=== PATIENT | female | born 1985 | race African-American/Black ===

== ENCOUNTER 2018-03-19 19:17 | Emergency (ER) | payer SELFPAY ==
[~2018-03-19] VITALS: Ht 162.6 cm; Wt 88.0 kg
[~2018-03-19 19:17] MED LIST: CHLO15MO2 PO; CIPR500T94 PO; HYDR-971 PO; IBUP800T19 PO; PENI500T PO; PHEN-318 PO
[2018-03-19] MEDS ORDERED: PENI500T PO (19:46)
[2018-03-19] MEDS ORDERED: HYDR-971 PO (19:46)
--- NOTE | 2018-03-19 19:46 | PHYS DOC ---
Past History Past Medical History: No Pertinent History Past Surgical History: Tubal ligation, Other Alcohol Use: None Drug Use: None Adult General Chief Complaint Chief Complaint: DENTAL PROBLEM HPI HPI Patient is a 33 year old female who presents with complaint of dental pain. Patient states that she was eating when her right upper lateral incisor suddenly fractured. Patient has had history of chronic dental pain and multiple dental caries. Patient states that she visited the dental clinic today but states that she was unable to afford definitive care for the tooth. She came to the emergency department today for pain control. Patient denies any fevers or other complaints. Patient rates pain as 9 out of 10. Patient has not taken medications for her symptoms. Review of Systems Review of Systems Constitutional: Denies fever or chills [] Eyes: Denies change in visual acuity, redness, or eye pain [] HENT: Dental pain, denies sore throat [] Respiratory: Denies cough or shortness of breath [] Cardiovascular: Denies chest pain or edema[] GI: Denies abdominal pain, nausea, vomiting, bloody stools or diarrhea [] : Denies dysuria or hematuria [] Musculoskeletal: Denies back pain or joint pain [] Integument: Denies rash or skin lesions [] Neurologic: Denies headache, focal weakness or sensory changes [] All other systems were reviewed and found to be within normal limits, except as documented in this note. Allergies Allergies Allergies Coded Allergies Type Severity Reaction Last Updated Verified No Known Drug Allergies 05/26/16 No Physical Exam Physical Exam Constitutional: Alert, afebrile, appears in [id number] discomfort. [] HENT: Normocephalic, atraumatic, bilateral external ears normal, oropharynx moist, fracture of tooth #7, no gingival swelling or fluctuance, no oral exudates, nose normal. [] Eyes: PERRLA, EOMI, conjunctiva normal, no discharge. [] Neck: Normal range of motion, no tenderness, supple, no stridor. [] Cardiovascular:Heart rate regular rhythm, no murmur [] Lungs & Thorax: Bilateral breath sounds clear to auscultation [] Abdomen: Bowel sounds normal, soft, no tenderness, no masses, no pulsatile masses. [] Skin: Warm, dry, no erythema, no rash. [] Back: No tenderness, no CVA tenderness. [] Extremities: No tenderness, no cyanosis, no clubbing, ROM intact, no edema. [] Neurologic: Alert and oriented X 3, normal motor function, normal sensory function, no focal deficits noted. [] Current Patient Data Vital Signs Vital Signs Date Time Temp Pulse Resp B/P (MAP) Pulse Ox O2 Delivery O2 Flow Rate FiO2 03/19/18 19:17 97.8 80 18 97 Room Air Lab Results None performed EKG EKG Not performed[] Radiology/Procedures Radiology/Procedures Not performed[] Course & Med Decision Making Course & Med Decision Making Pertinent Labs and Imaging studies reviewed. (See chart for details) The patient was given [place] and penicillin in the emergency department for treatment. Advised follow-up with a dental clinic for definitive care of her dental fracture. Recommended return to emergency department for any worsening symptoms. Patient was understanding and agreement with treatment plan. Dragon Disclaimer Dragon Disclaimer This electronic medical record was generated, in whole or in part, using a voice recognition dictation system. Departure Departure: Impression: Primary Impression: Pain, dental Disposition: HOME, SELF-CARE Condition: STABLE Referrals: PCPRUBEN (PCP) Patient Instructions: Dental Pain Additional Instructions: You'll need follow-up with a dentist in the next 2 days for definitive care of your tooth. Return to emergency department for any worsening symptoms. Scripts Penicillin V Potassium (PENICILLIN V POTASSIUM) 500 Mg Tablet 1 TAB PO QID, #40 TAB Prov: TRISTIN KEN MD 03/19/18 Hydrocodone Bit/Acetaminophen (NORCO 5-325 TABLET) 1 Each Tablet 1-2 TAB PO Q4-6HRS PRN for PAIN, #20 TAB Prov: TRISTIN KEN MD 03/19/18 TRISTIN KEN MD Mar 19, 2018 19:46
[2018-03-19] MEDS ORDERED: PENICILLIN V K 250 MG TABLET. PO STA (19:49)
[2018-03-19 20:00] VITALS: BP 121/78
[2018-03-19] MEDS ORDERED: HYDROcodone/APAP 7.5/325MG 1 TAB TABLET PO ONE (20:00)
== END 2018-03-19 20:00 | disposition home or self-care (01) ==
LOC: ER 19:17
DX: K08.89 Other specified disorders of teeth and supporting structures (principal); S02.5XXA Fracture of tooth (traumatic), initial encounter for closed fracture; X58.XXXA Exposure to other specified factors, initial encounter; Y93.89 Activity, other specified; Y99.8 Other external cause status; Y92.89 Other specified places as the place of occurrence of the external cause
CPT/HCPCS: 99283

== ENCOUNTER 2018-03-22 12:02 | Emergency (ER) | payer SELFPAY ==
[~2018-03-22] VITALS: Ht 162.6 cm; Wt 83.9 kg
[2018-03-22] MEDS ORDERED: IBUP800T19 PO (12:28)
--- NOTE | 2018-03-22 12:28 | PHYS DOC ---
Past History Past Medical History: No Pertinent History Past Surgical History: Tubal ligation, Other Smoking: Cigarettes Alcohol Use: None Drug Use: None Adult General Chief Complaint Chief Complaint: Toothache HPI HPI 33-year-old female patient states she has broken tooth several days ago and was seen in this emergency room 4 days ago and treated with hydrocodone and antibiotic but her pain is not getting better and asking to pulling the tooth out or having a stronger pain medication. She denies fever and chills, nausea and vomiting, . Patient states she stopped smoking 4 days ago because of the pain. Review of Systems Review of Systems Constitutional: Denies fever or chills [] Eyes: Denies change in visual acuity, redness, or eye pain [] HENT: Denies nasal congestion or sore throat [] Respiratory: Denies cough or shortness of breath [] Cardiovascular: No additional information not addressed in HPI [] GI: Denies abdominal pain, nausea, vomiting, bloody stools or diarrhea [] : Denies dysuria or hematuria [] Musculoskeletal: Denies back pain or joint pain [] Integument: Denies rash or skin lesions [] Neurologic: Denies headache, focal weakness or sensory changes [] Endocrine: Denies polyuria or polydipsia [] All other systems were reviewed and found to be within normal limits, except as documented in this note. Allergies Allergies Allergies Coded Allergies Type Severity Reaction Last Updated Verified No Known Drug Allergies 05/26/16 No Physical Exam Physical Exam Constitutional: Well nourished, mild distress, non-toxic appearance. [] HENT: Normocephalic, atraumatic, right upper incisor ( tooth#7) feet large cavity without sign of abscess, bilateral external ears normal, oropharynx moist , no oral exudates, nose normal. [] Eyes: PERRLA, EOMI, conjunctiva normal, no discharge. [] Neck: Normal range of motion, no tenderness, supple, no stridor. [] Cardiovascular:Heart rate regular rhythm, no murmur [] Lungs & Thorax: Bilateral breath sounds clear to auscultation [] Neurologic: Alert and oriented X 3, normal motor function, normal sensory function, no focal deficits noted. [] Psychologic: Affect anxious, judgement normal, mood normal. [] EKG EKG [] Radiology/Procedures Radiology/Procedures [] Course & Med Decision Making Course & Med Decision Making Lotion of patient in ER showed 33-year-old female patient with history of smoking presented to ER for the second time because of the pain as improving the tooth. Patient informed that she is to follow-up with the dentist. Patient did not want dental block and had Toradol shot and instructed to follow-up with the dentist and continue home hydrocodone and penicillin. Dragon Disclaimer Dragon Disclaimer This electronic medical record was generated, in whole or in part, using a voice recognition dictation system. Departure Departure: Impression: Primary Impression: Dentalgia Additional Impressions: Dental caries Tobacco abuse Tobacco abuse counseling Disposition: HOME, SELF-CARE (At 1230) Condition: STABLE Referrals: PCP,NO (PCP) Patient Instructions: Dental Caries, Dental Pain, Smoking Cessation, Tips For Success, Tooth Fracture Additional Instructions: Follow-up with her dentist in 2 or 3 days Quit smoking Continue home antibiotic and pain medication Scripts Ibuprofen (IBUPROFEN) 800 Mg Tablet 1 TAB PO TID, #30 TAB Prov: NICOLA KHAN MD 03/22/18 Problem Qualifiers NICOLA KHAN MD Mar 22, 2018 12:28
[2018-03-22] MEDS ORDERED: KETOROLAC 60 MG/2 ML VIAL. IM ONE (12:45)
[2018-03-22 13:13] VITALS: BP 109/72
== END 2018-03-22 13:15 | disposition home or self-care (01) ==
LOC: ER 12:02
DX: K02.9 Dental caries, unspecified (principal); F17.210 Nicotine dependence, cigarettes, uncomplicated; Z71.6 Tobacco abuse counseling
CPT/HCPCS: 96372; 99283; J1885

== ENCOUNTER 2018-08-14 13:52 | Emergency (ER) | payer SELFPAY ==
[~2018-08-14] VITALS: Ht 162.6 cm; Wt 86.2 kg
[~2018-08-14 13:52] MED LIST changes: +HYDR-3165 PO; -HYDR-971 PO
[2018-08-14 13:59] VITALS: BP 124/79
[2018-08-14] MEDS ORDERED: IBUPROFEN 400 MG TABLET. PO ONE (14:30)
[2018-08-14] MEDS ORDERED: NAPR-683 PO (14:31)
--- NOTE | 2018-08-14 14:32 | PHYS DOC ---
Past History Past Medical History: No Pertinent History Past Surgical History: Tubal ligation, Other Smoking: Cigarettes Alcohol Use: None Drug Use: None Adult General Chief Complaint Chief Complaint: DENTAL PROBLEM HPI HPI Patient is a 33 year old smoking female who presents with complaining of dental pain. Patient states last night she had the procaine right upper teeth with complaining of severe pain in her tooth without fever and chills, dysphagia, nausea and vomiting. Patient has history of frequent emergency room visits for dental pain. Review of Systems Review of Systems Constitutional: Denies fever or chills [] Eyes: Denies change in visual acuity, redness, or eye pain [] HENT: Denies nasal congestion or sore throat [] Respiratory: Denies cough or shortness of breath [] Cardiovascular: No additional information not addressed in HPI [] GI: Denies abdominal pain, nausea, vomiting, bloody stools or diarrhea [] : Denies dysuria or hematuria [] Musculoskeletal: Denies back pain or joint pain [] Integument: Denies rash or skin lesions [] Neurologic: Denies headache, focal weakness or sensory changes [] Endocrine: Denies polyuria or polydipsia [] All other systems were reviewed and found to be within normal limits, except as documented in this note. Current Medications Current Medications Current Medications Medications (Trade) Dose Ordered Sig/Steffi Start Time Stop Time Status Last Admin Dose Admin Ibuprofen (Motrin) 800 mg 1X ONCE 08/14/18 14:30 08/14/18 14:31 Allergies Allergies Allergies Coded Allergies Type Severity Reaction Last Updated Verified acetaminophen Allergy Mild 03/22/18 Yes codeine Allergy Mild 03/22/18 Yes Physical Exam Physical Exam Constitutional: Well developed, well nourished, mild distress, non-toxic appearance. [] HENT: Normocephalic, atraumatic, bilateral external ears normal, oropharynx moist, no oral exudates, nose normal, tooth #7 fractured with mild tenderness without sign of abscess Eyes: PERRLA, EOMI, conjunctiva normal, no discharge. [] Neck: Normal range of motion, no tenderness, supple, no stridor. [] Cardiovascular:Heart rate regular rhythm, no murmur [] Lungs & Thorax: Bilateral breath sounds clear to auscultation [] Skin: Warm, dry, no erythema, no rash. [] Back: No tenderness, no CVA tenderness. [] Extremities: No tenderness, no cyanosis, no clubbing, ROM intact, no edema. [] Neurologic: Alert and oriented X 3, normal motor function, normal sensory function, no focal deficits noted. [] Psychologic: Affect anxious, judgement normal, mood normal. [] Current Patient Data Vital Signs Vital Signs Date Time Temp Pulse Resp B/P (MAP) Pulse Ox O2 Delivery O2 Flow Rate FiO2 08/14/18 13:59 98.1 75 18 100 Room Air EKG EKG [] Radiology/Procedures Radiology/Procedures [] Course & Med Decision Making Course & Med Decision Making Evaluation of patient in ER showed 33-year-old female patient with frequent emergency room visits for dental pain presented with fractured tooth. Patient did not have sign of infection and prescription for pain medication was given and instructed to quit smoking and follow up with her dentist. Dragon Disclaimer Dragon Disclaimer This electronic medical record was generated, in whole or in part, using a voice recognition dictation system. Departure Departure: Impression: Primary Impression: Fractured tooth Additional Impressions: Tobacco abuse Tobacco abuse counseling Disposition: HOME, SELF-CARE (at 1429) Condition: STABLE Referrals: PCP,NO (PCP) Patient Instructions: Smoking Cessation, Tips For Success, Tooth Fracture Additional Instructions: Follow-up with a dentist in 2-3 days Follow-up with your primary care physician in 3-5 days Return to ER if not getting better Quit smoking Use [id number] Orajel Scripts Naproxen (NAPROSYN) 500 Mg Tablet 500 MG PO BID for pain, #20 TAB Prov: NICOLA KHAN MD 08/14/18 Problem Qualifiers NICOLA KHAN MD Aug 14, 2018 14:32
== END 2018-08-14 14:35 | disposition home or self-care (01) ==
LOC: ER 13:52
DX: S02.5XXA Fracture of tooth (traumatic), initial encounter for closed fracture (principal); F17.210 Nicotine dependence, cigarettes, uncomplicated; Z88.6 Allergy status to analgesic agent; Z88.5 Allergy status to narcotic agent; Z71.6 Tobacco abuse counseling; X58.XXXA Exposure to other specified factors, initial encounter; Y93.89 Activity, other specified; Y92.89 Other specified places as the place of occurrence of the external cause; Y99.8 Other external cause status
CPT/HCPCS: 99282

== ENCOUNTER 2018-10-15 12:29 | Emergency (ER) | payer SELFPAY ==
[~2018-10-15] VITALS: Ht 162.6 cm; Wt 88.9 kg
[~2018-10-15 12:29] MED LIST changes: +NAPR-683 PO
[2018-10-15] MEDS ORDERED: HYDROcodone/APAP 5/325MG 1 TAB TABLET PO ONE (13:15)
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
[2018-10-15 13:57] VITALS: BP 128/73
[2018-10-15] MEDS ORDERED: HYDR-3165 PO (14:13)
[2018-10-15] MEDS ORDERED: NAPR-683 PO (14:13)
[2018-10-15] MEDS ORDERED: CYCL-331 PO (14:13)
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
== END 2018-10-15 14:15 | disposition home or self-care (01) ==
LOC: ER 12:29
DX: S83.92XA Sprain of unspecified site of left knee, initial encounter (principal); S43.402A Unspecified sprain of left shoulder joint, initial encounter; Z71.6 Tobacco abuse counseling; Z88.5 Allergy status to narcotic agent; Z88.6 Allergy status to analgesic agent; V47.5XXA Car driver injured in collision with fixed or stationary object in traffic accident, initial encounter; Y93.I9 Activity, other involving external motion; Y92.488 Other paved roadways as the place of occurrence of the external cause; Y99.8 Other external cause status
CPT/HCPCS: 73030; 73564; 99283

== ENCOUNTER 2020-01-30 20:43 | Emergency (ER) | payer SELFPAY ==
[~2020-01-30] VITALS: Ht 162.6 cm; Wt 85.4 kg
[~2020-01-30 20:43] MED LIST changes: +CYCL-331 PO
[2020-01-30 21:15] VITALS: BP 139/87
[2020-01-30 21:34] LABS: U PREG PATIENT NEGATIVE (NEG)
[2020-01-30 21:37] LABS: BARBITURATES NEG (NEG); BENZODIAZEPINES NEG (NEG); CANNABINOIDS NEG (NEG); COCAINE NEG (NEG); METHADONE NEG (NEG); OPIATES NEG (NEG); PHENCYCLIDINE NEG (NEG)
[2020-01-30 21:38] LABS: BILIRUBIN,URINE NEG (NEG); CLARITY,URINE CLOUDY; COLOR,URINE YELLOW; GLUCOSE,URINE NEG (NEG)
[2020-01-30] MEDS ORDERED: FLUCONAZOLE 100 MG TABLET. ONE (21:38)
[2020-01-30 21:39] LABS: BACTERIA,URINE FEW /HPF (0-FEW); NITRITE,URINE POS (NEG); SQUAMOUS EPITHELIAL CELL,UR FEW /LPF; UROBILINOGEN,URINE 0.2 mg/dL (0.2 mg/dL); WBC,URINE TNTC /HPF (0-4)
[2020-01-30] MEDS ORDERED: OXYC-325 PO (21:41)
[2020-01-30] MEDS ORDERED: METR70GE14 VG (21:41)
[2020-01-30] MEDS ORDERED: DOXY100T PO (21:41)
[2020-01-30] MEDS ORDERED: FLUC100T7 PO (21:41)
[2020-01-30 21:45] LABS: AMPHETAMINE/METHAMPHETAMINE NEG (NEG)
[2020-01-30] MEDS ORDERED: metroNIDAZOLE 500 MG TABLET PO ONE (22:00)
[2020-01-30] MEDS ORDERED: oxyCODONE/APAP 5/325 1 TAB TABLET PO ONE (22:00)
[2020-01-30] MEDS ORDERED: AZITHROMYCIN 250 MG TABLET. PO ONE (22:00)
[2020-01-30] MEDS ORDERED: ONDANSETRON ODT 4 MG TAB.RAPDIS PO ONE (22:00)
[2020-01-30] MEDS ORDERED: FLUCONAZOLE 100 MG TABLET. PO ONE (22:00)
[2020-01-30] MEDS ORDERED: cefTRIAXone IM 1 GM VIAL IM ONE (22:00)
--- NOTE | 2020-01-30 22:02 | PHYS DOC ---
Past History Past Medical History: STD Past Surgical History: Gastric Bypass, Tubal ligation, Other Additional Past Surgical Histo: UTERINE ABLATION Smoking: Cigarettes Alcohol Use: None Drug Use: None General Adult EDM: Chief Complaint: VAGINAL BLEEDING HPI: HPI: ".. I got a bad vaginal discharged.. I am so sore down there.. I ve gotten so raw down there... I am bleeding... I did have Trich.. with my last partner... I got treated...but I am sure he got his meds filled... 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 Patient has had 5 lifetime sex partners. Was diagnosed previously with trichomonas with her last sexual partner. Unsure if he ever filled his prescription for metronidazole. The patient patient denies prior history of STDs. Patient states she did complete her treatment with Flagyl. Patient denies history immunosuppression. No history of travel outside the [place] area. Has been exposed to Covid at work, but has been wearing full protective equipment. Patient has previous history of Tish-en-Y surgery for weight reduction-December 22, 2007. Patient has lost more than 120 kg of weight since surgery. Review of Systems: Review of Systems: Constitutional: Denies fever or chills Eyes: Denies change in visual acuity HENT: Denies nasal congestion or sore throat Respiratory: Denies cough or shortness of breath Cardiovascular: Denies chest pain or edema GI: Denies abdominal pain, nausea, vomiting, bloody stools or diarrhea . Complains of lower pelvic pain and vaginal discharge. : Denies dysuria Musculoskeletal: Denies back pain or joint pain Integument: Denies rash Neurologic: Denies headache, focal weakness or sensory changes Endocrine: Denies polyuria or polydipsia Lymphatic: Denies swollen glands Psychiatric: Denies depression or anxiety Heart Score: Risk Factors: Risk Factors: DM, Current or recent (<one month) smoker, HTN, HLP, family history of CAD, obesity. Risk Scores: Score 0 - 3: 2.5% MACE over next 6 weeks - Discharge Home Score 4 - 6: 20.3% MACE over next 6 weeks - Admit for Clinical Observation Score 7 - 10: 72.7% MACE over next 6 weeks - Early Invasive Strategies Family History: Family History: Noncontributory Current Medications: Current Meds: Current Medications Medications (Trade) Dose Ordered Sig/Steffi Start Time Stop Time Status Last Admin Dose Admin Azithromycin (Zithromax) 1,000 mg 1X ONCE 01/30/20 22:00 01/30/20 22:01 DC 01/30/20 21:45 1,000 MG Ceftriaxone Sodium (Rocephin Im) 1 gm 1X ONCE 01/30/20 22:00 01/30/20 22:01 DC 01/30/20 21:46 1 GM Fluconazole (Diflucan) 100 mg STK-MED ONCE 01/30/20 21:38 01/30/20 21:38 DC Metronidazole (Flagyl) 2,000 mg 1X ONCE 01/30/20 22:00 01/30/20 22:01 DC 01/30/20 21:45 2,000 MG Ondansetron HCl (Zofran Odt) 8 mg 1X ONCE 01/30/20 22:00 01/30/20 22:01 DC 01/30/20 21:45 8 MG Oxycodone/ Acetaminophen (Percocet 5/325) 2 tab 1X ONCE 01/30/20 22:00 01/30/20 22:01 DC 01/30/20 21:46 2 TAB Allergies: Allergies: Allergies Coded Allergies Type Severity Reaction Last Updated Verified codeine Allergy Mild 03/22/18 Yes Physical Exam: PE: Constitutional: Moderate acute distress, non-toxic appearance. [] HENT: Normocephalic, atraumatic, bilateral external ears normal, oropharynx moist, no oral exudates, nose normal. [] Eyes: PERRLA, EOMI, conjunctiva normal, no discharge. [] Neck: Normal range of motion, no tenderness, supple, no stridor. [] Cardiovascular:Heart rate regular rhythm, no murmur [] Lungs & Thorax: Bilateral breath sounds equal apex few scattered wheezes auscultation [] Abdomen: Bowel sounds normal, soft, no tenderness, no masses, no pulsatile masses. [] Lower pelvic tenderness. Labia are swollen, erythemic. Vaginal discharge. Cervical motion tenderness. Rectal exam nontender. Old surgery scars Skin: Warm, dry, no erythema, no rash. [] Back: No tenderness, no CVA tenderness. [] Extremities: No tenderness, no cyanosis, no clubbing, ROM intact, no edema. [] Neurologic: Alert and oriented X 3, normal motor function, normal sensory function, no focal deficits noted. [] Psychologic: Affect anxious, judgement normal, mood normal. [] Current Patient Data: Labs: Laboratory Tests Test 01/30/20 21:00 01/30/20 21:17 Urine Collection Type Unknown Urine Color Yellow Urine Clarity Cloudy Urine pH 5.5 Urine Specific [place] 1.025 Urine Protein 30 mg/dl (NEG-TRACE) Urine Glucose (UA) Neg mg/dL (NEG) Urine Ketones (Stick) Trace mg/dL (NEG) Urine Blood Mod (NEG) Urine Nitrite Pos (NEG) Urine Bilirubin Neg (NEG) Urine Urobilinogen Dipstick 0.2 mg/dL (0.2 mg/dL) Urine Leukocyte Esterase Mod (NEG) Urine RBC 6-10 /HPF (0-2) Urine WBC Tntc /HPF (0-4) Urine Squamous Epithelial Cells Few /LPF Urine Bacteria Few /HPF (0-FEW) Urine Test Negative (NEG) Urine Opiates Screen Neg (NEG) Urine Methadone Screen Neg (NEG) Urine Barbiturates Neg (NEG) Urine Phencyclidine Screen Neg (NEG) Urine Amphetamine/Methamphetamine Neg (NEG) Urine Benzodiazepines Screen Neg (NEG) Urine Cocaine Screen Neg (NEG) Urine Cannabinoids Screen Neg (NEG) Urine Ethyl Alcohol Neg (NEG) POC Urine HCG, Qualitative hcg negative (Negative) Microbiology 01/30/20 Wet Prep - Final, Complete Vital Signs: Vital Signs Date Time Temp Pulse Resp B/P (MAP) Pulse Ox O2 Delivery O2 Flow Rate FiO2 01/30/20 21:15 98.2 97 20 139/87 (104) 100 Room Air EKG: EKG: [] Radiology/Procedures: Radiology/Procedures: [] Course & Med Decision Making: Course & Med Decision Making Pertinent Labs and Imaging studies reviewed. (See chart for details) Patient take doxycycline 100 mg twice a day for 14 days. Patient after completing doxycycline to take Diflucan 100 x 3 days. Patient to use nightly MetroGel for 7 days. Patient follow-up pending cultures. Patient practice safe sex. Patient to consider reexam to make sure clearing of infection. Patient return if any concerns. Patient warned that Flagyl can cause severe vomiting she ingest alcohol. Impression: 1. Cervicitis 2. Urinary tract infection [] Dragon Disclaimer: Dragjulienne Disclaimer: This electronic medical record was generated, in whole or in part, using a voice recognition dictation system. Departure Departure: Impression: Primary Impression: Cervicitis Disposition: HOME/RESIDENCE PRIOR TO ADM Condition: GUARDED Patient Instructions: Cervicitis, [id number] Additional Instructions: Follow up pending cultures with primary. Result may not be available for 3 days. Take doxycycline twice daily x14 days. At the end of 14 days of treatment take Diflucan x 3 days. Use MetroGel vaginally nightly for 7 days. Practice safe sex. Must follow-up with primary care. Tylenol or ibuprofen for discomfort for marked discomfort may take Percocet. Return if any concerns. Note you can not intake alcohol with Flagyl /metronidazole will cause severe vomiting. Scripts Oxycodone HCl/Acetaminophen (Percocet 5-325 mg Tablet) 1 Each Tablet 1 TAB PO PRN QID PRN for PAIN MDD 4 Tablet(s), #30 TAB 0 Refills Prov: ORLIN CM MD 01/30/20 Metronidazole (METROGEL-VAGINAL) 70 Gm Gel.w.appl 1 APPFUL VG QHS for cervicitis for 7 Days, #1 EACH 0 Refills Prov: ORLIN CM MD 01/30/20 Fluconazole (DIFLUCAN) 100 Mg Tablet 100 MG PO DAILY for yeast for 3 Days, #3 TAB Prov: ORLIN CM MD 01/30/20 Doxycycline Hyclate (DOXYCYCLINE HYCLATE) 100 Mg Tablet 100 MG PO BID for cervicits for 14 Days, #28 TAB Prov: ROLIN CM MD 01/30/20 Dragon Disclaimer This chart was dictated in whole or in part using Voice Recognition software in a busy, high-work load, and often noisy Emergency Department environment. It may contain unintended and wholly unrecognized errors or omissions. ORLIN CM MD January 30, 2020 22:02
[2020-02-02 20:07] LABS: CHLAMYDIA PROBE Negative (Negative)
== END 2020-01-30 22:15 | disposition home or self-care (01) ==
LOC: ER 20:43
DX: N39.0 Urinary tract infection, site not specified (principal); N72 Inflammatory disease of cervix uteri; N93.9 Abnormal uterine and vaginal bleeding, unspecified; R10.2 Pelvic and perineal pain; R30.0 Dysuria; F17.210 Nicotine dependence, cigarettes, uncomplicated; Z98.51 Tubal ligation status; Z98.890 Other specified postprocedural states; Z88.5 Allergy status to narcotic agent
CPT/HCPCS: 36415; 80307; 81001; 81025; 87086; 87491; 87591; 96372; 99284; J0456; J0696; Q0111; Q0162